=== PATIENT | male | born 1950 | race Caucasian/White ===

== ENCOUNTER 2020-01-05 12:20 | Inpatient (IN) ==
[2020-01-05 14:38] LABS: Basophils # 0.1 10*3/uL (0.0-0.2); Basophils % 0.5 % (0.0-0.8); Hematocrit 43.6 VOL% (42.0-52.0); Immature Granulocytes % 1.3 %; Immature Granulocytes Absolute 0.17 #; Lymphocytes % 7.5 % (21.2-54.2); Mean Corpuscular HGB Conc 34.4 GM/DL (32-36); Mean Corpuscular Volume 97.5 FL (87-102); Mean Platelet Volume 10.4 FL (9.6-12.0); Monocytes % 9.3 % (1.7-12.7); NRBC # 0.16 10*3/uL; Neutrophils % 81.4 % (38.7-73.9); Platelet Count 175 T/CUMM (130-400); Red Blood Count 4.47 MC/CUMM (3.8-5.5); Red Cell Distribution Width 15.8 % (9.3-17.3)
[2020-01-05 14:59] LABS: Acetaminophen < 2.0 UG/ML (10-30); Salicylate < 2.8 MG/DL (2.8-20)
[2020-01-05 15:07] LABS: Albumin 3.3 G/DL (3.4-5.0); Bilirubin,Total 1.6 MG/DL (0.2-1.0); Calcium 8.6 MG/DL (8.5-10.1); Osmolality,Calculated 266.5 MOS/KG (273-304); Thyroid Stimulating Hormone 1.41 uIU/ml (0.358-3.74); Total Protein 7.3 G/DL (6.4-8.3)
[2020-01-05] MEDS ORDERED: SODIUM CHLORIDE 0.9% 1,000 ML IV STA (15:22)
[2020-01-05] MEDS ORDERED: LEVOFLOXACIN INJ 500 MG in PREMIX 1 EACH IV STA (16:02)
[2020-01-05] MEDS ORDERED: GLUCAGON 1 MG VIAL IM PRN (16:57)
[2020-01-05] MEDS ORDERED: DEXTROSE 50% 25 GM/50 ML VIAL IV PRN (16:57)
[2020-01-05] MEDS ORDERED: ONDANSETRON 4 MG/2 ML VIAL IV PRN (16:57)
[2020-01-05] MEDS ORDERED: SODIUM CHLORIDE 0.9% 1,000 ML IV SCH (17:00)
[2020-01-05] MEDS ORDERED: NICOTINE 7 MG/24 HR PATCH TRANSDERM PRN (17:18)
[2020-01-05] MEDS ORDERED: MAGNESIUM SULF RIDER 4 GM in PREMIX 1 EACH IV PRN (17:23)
[2020-01-05] MEDS ORDERED: MAGNESIUM SULF RIDER 2 GM in PREMIX 1 EACH IV PRN (17:23)
[2020-01-05 17:27] LABS: Apearance,Urine CLEAR (Clear); Bilirubin,Urine Negative (Negative); Blood, Urine Large mg/dL (Negative); Glucose,Urine (UA) Negative (Negative); Ketones,Urine 80 mg/dL (Negative); Mucus,Urine Occasional /LPF (Occasional); Nitrite,Urine Negative (Negative); Protein,Urine 100 MG/DL; RBC,Urine 3 /HPF (0-4); Urine Color Yellow (Yellow); Urine Specific Gravity 1.046 (1.001-1.035); WBC,Urine 2 /HPF (0-6)
[2020-01-05 17:34] LABS: Barbiturates Screen,Urine Negative (Negative); Benzodiazepines Screen,Urine Negative (Negative); Cannabinoid Screen,Urine Negative (Negative); Opiate Screen,Urine Negative (Negative); Phencyclidine Screen,Urine Negative (Negative)
[2020-01-05] MEDS: chlordiazePOXIDE 25 MG CAPSULE PO SCH (18:45)
[2020-01-05] MEDS: DEXTROSE 5% NACL 0.9% 1,000 ML IV SCH (18:45)
[2020-01-05] MEDS ORDERED: LORazepam 2 MG/1 ML VIAL IV ONE (19:52)
[2020-01-05] MEDS: FOLIC ACID 1 MG TABLET PO SCH (20:26)
[2020-01-05] MEDS ORDERED: ENOXAPARIN 40 MG/0.4 ML SYRINGE SUBCUT SCH (21:00)
[2020-01-06] MEDS ORDERED: ENOXAPARIN 80 MG/0.8 ML SYRINGE SUBCUT ONE (00:29)
[2020-01-06] MEDS ORDERED: DILTIAZEM 25 MG/5 ML VIAL IV ONE (00:30)
[2020-01-06] MEDS: chlordiazePOXIDE 25 MG CAPSULE PO SCH ×5 (00:39→23:49)
[2020-01-06] MEDS ORDERED: ENOXAPARIN 80 MG/0.8 ML SYRINGE SUBCUT SCH (01:00)
[2020-01-06] MEDS ORDERED: DILTIAZEM 50 MG/10 ML VIAL IV ONE (01:00)
[2020-01-06] MEDS: dilTIAZem Drip 125 MG/125 ML PREMIX IV SCH (04:45)
[2020-01-06] MEDS: DEXTROSE 5% NACL 0.9% 1,000 ML IV SCH ×2 (04:45→14:15)
[2020-01-06] MEDS: LEVOFLOXACIN 500 MG TABLET PO SCH (09:10)
[2020-01-06] MEDS: MULTIVITAMIN (BEROCCA) TABLET PO SCH (09:10)
[2020-01-06] MEDS: THIAMINE 100 MG TABLET PO SCH (09:10)
[2020-01-06] MEDS: ACETAMINOPHEN 325 MG TABLET PO PRN ×2 (10:58→15:02)
[2020-01-06] MEDS ORDERED: carvediloL 6.25 MG TABLET PO SCH (11:45)
[2020-01-06] MEDS ORDERED: carvediloL 12.5 MG TABLET PO ONE (14:00)
[2020-01-06] MEDS: busPIRone 15 MG TABLET PO SCH ×2 (15:02→21:17)
[2020-01-06 17:23] LABS: Basophils # 0.1 10*3/uL (0.0-0.2); Basophils % 0.4 % (0.0-0.8); Eosinophils % 0.3 % (0.00-10.9); Hematocrit 29.2 VOL% (42.0-52.0); Immature Granulocytes % 0.8 %; Immature Granulocytes Absolute 0.11 #; Lymphocytes # 1.6 10*3/uL (1.4-4.0); Mean Corpuscular HGB Conc 34.9 GM/DL (32-36); Mean Corpuscular Volume 96.1 FL (87-102); Mean Platelet Volume 10.5 FL (9.6-12.0); Monocytes % 4.4 % (1.7-12.7); Neutrophils % 83.1 % (38.7-73.9); Red Cell Distribution Width 15.4 % (9.3-17.3); White Blood Count 14.6 T/CUMM (4-12)
[2020-01-06 17:35] LABS: Albumin 2.2 G/DL (3.4-5.0); Bilirubin,Total 1.5 MG/DL (0.2-1.0); Calcium 8.1 MG/DL (8.5-10.1); Osmolality,Calculated 263.7 MOS/KG (273-304)
[2020-01-06 17:46] LABS: Band Neutrophils 4 % (0-10); Lymphocytes 12 % (20-55); Platelet Estimate Adequate; Segmented Neutrophils 82 % (50-85); Total Cells Counted 100
[2020-01-06 18:06] LABS: Hemoglobin 10.2 GM/DL (14.0-18.0); Red Blood Count 3.04 MC/CUMM (3.8-5.5)
[2020-01-06 18:07] LABS: Platelet Count 117 T/CUMM (130-400)
[2020-01-06 18:13] LABS: Basophils # 0.1 10*3/uL (0.0-0.2); Basophils % 0.6 % (0.0-0.8); Eosinophils # 0.1 10*3/uL (0.0-0.87); Eosinophils % 0.3 % (0.00-10.9); Hematocrit 29.1 VOL% (42.0-52.0); Hemoglobin 10.2 GM/DL (14.0-18.0); Immature Granulocytes % 0.9 %; Immature Granulocytes Absolute 0.14 #; Lymphocytes # 1.8 10*3/uL (1.4-4.0); Lymphocytes % 11.7 % (21.2-54.2); Mean Corpuscular HGB Conc 35.1 GM/DL (32-36); Mean Corpuscular Volume 96.7 FL (87-102); Mean Platelet Volume 10.8 FL (9.6-12.0); Monocytes % 4.3 % (1.7-12.7); NRBC # 0.07 10*3/uL; Neutrophils % 82.2 % (38.7-73.9); Platelet Count 109 T/CUMM (130-400); Red Blood Count 3.01 MC/CUMM (3.8-5.5); Red Cell Distribution Width 15.3 % (9.3-17.3)
[2020-01-06 18:42] LABS: Band Neutrophils 2 % (0-10); Lymphocytes 4 % (20-55); Nucleated Red Blood Cells 1 (0-5); Platelet Estimate Adequate; Segmented Neutrophils 92 % (50-85); Total Cells Counted 100
[2020-01-06] MEDS: carvediloL 12.5 MG TABLET PO SCH (21:17)
[2020-01-06] MEDS: FOLIC ACID 1 MG TABLET PO SCH (21:17)
[2020-01-06 21:58] LABS: Hematocrit 29.5 VOL% (42.0-52.0); Hemoglobin 10.2 GM/DL (14.0-18.0)
[2020-01-07 01:05] LABS: Apearance,Urine CLEAR (Clear); Bilirubin,Urine Negative (Negative); Blood, Urine Small mg/dL (Negative); Glucose,Urine (UA) >=500 mg/dL (Negative); Ketones,Urine Negative (Negative); Mucus,Urine Occasional /LPF (Occasional); Nitrite,Urine Negative (Negative); Protein,Urine Negative; RBC,Urine 7 /HPF (0-4); Renal Epithelial Cells,Urine Occasional /HPF (<1); Squamous Epithelial Cell,Urine Occasional /HPF (0-10); Urine Color Straw (Yellow); Urine Urobilinogen < 2.0 EU/DL (0.2-1.0); WBC,Urine 29 /HPF (0-6)
[2020-01-07 06:33] LABS: Basophils # 0.1 10*3/uL (0.0-0.2); Basophils % 0.7 % (0.0-0.8); Eosinophils # 0.1 10*3/uL (0.0-0.87); Eosinophils % 0.5 % (0.00-10.9); Hematocrit 33.2 VOL% (42.0-52.0); Hemoglobin 11.3 GM/DL (14.0-18.0); Immature Granulocytes % 0.9 %; Lymphocytes # 1.1 10*3/uL (1.4-4.0); Lymphocytes % 10.2 % (21.2-54.2); Mean Corpuscular Volume 98.5 FL (87-102); Mean Platelet Volume 11.4 FL (9.6-12.0); Monocytes % 3.5 % (1.7-12.7); NRBC # 0.08 10*3/uL; Neutrophils % 84.2 % (38.7-73.9); Platelet Count 122 T/CUMM (130-400); Red Blood Count 3.37 MC/CUMM (3.8-5.5); Red Cell Distribution Width 15.3 % (9.3-17.3); White Blood Count 10.7 T/CUMM (4-12)
[2020-01-07] MEDS: chlordiazePOXIDE 25 MG CAPSULE PO SCH ×4 (06:38→23:11)
[2020-01-07 07:15] LABS: Calcium 8.2 MG/DL (8.5-10.1); Osmolality,Calculated 266.2 MOS/KG (273-304)
[2020-01-07 07:46] LABS: Band Neutrophils 8 % (0-10); Lymphocytes 13 % (20-55); Nucleated Red Blood Cells 4 (0-5); Segmented Neutrophils 75 % (50-85); Total Cells Counted 100
[2020-01-07 07:47] LABS: Hypochromasia 2+; Platelet Estimate Decreased
[2020-01-07] MEDS ORDERED: POTASSIUM CHLORIDE 20 MEQ TABLET PO ONE ×3 (08:39→20:00)
[2020-01-07] MEDS: MULTIVITAMIN (BEROCCA) TABLET PO SCH (09:22)
[2020-01-07] MEDS: carvediloL 12.5 MG TABLET PO SCH (09:22)
[2020-01-07] MEDS: busPIRone 15 MG TABLET PO SCH ×3 (09:22→20:52)
[2020-01-07] MEDS: THIAMINE 100 MG TABLET PO SCH (09:23)
[2020-01-07] MEDS: DEXTROSE 5% NACL 0.9% 1,000 ML IV SCH (09:23)
[2020-01-07] MEDS: LEVOFLOXACIN 500 MG TABLET PO SCH (09:23)
[2020-01-07] MEDS: APIXABAN 5 MG TABLET PO SCH ×2 (10:14→20:52)
[2020-01-07] MEDS: dilTIAZem Drip 125 MG/125 ML PREMIX IV SCH (13:07)
[2020-01-07] MEDS: LORazepam 2 MG/1 ML VIAL IV PRN ×2 (13:37→20:08)
[2020-01-07] MEDS: DIGOXIN 0.25 MG TABLET PO SCH (19:02)
[2020-01-07] MEDS: carvediloL 25 MG TABLET PO SCH (20:52)
[2020-01-07] MEDS: FOLIC ACID 1 MG TABLET PO SCH (20:52)
[2020-01-07] MEDS: MAGNESIUM OXIDE 400 MG TABLET PO SCH (20:54)
[2020-01-08] MEDS: DEXTROSE 5% NACL 0.9% 1,000 ML IV SCH ×2 (01:24→14:27)
[2020-01-08] MEDS: dilTIAZem Drip 125 MG/125 ML PREMIX IV SCH (02:28)
[2020-01-08] MEDS: chlordiazePOXIDE 25 MG CAPSULE PO SCH ×3 (05:03→18:05)
[2020-01-08] MEDS: LEVOFLOXACIN 500 MG TABLET PO SCH (09:34)
[2020-01-08] MEDS: carvediloL 25 MG TABLET PO SCH ×2 (09:34→21:43)
[2020-01-08] MEDS: busPIRone 15 MG TABLET PO SCH ×3 (09:34→21:42)
[2020-01-08] MEDS: MAGNESIUM OXIDE 400 MG TABLET PO SCH ×2 (09:34→21:43)
[2020-01-08] MEDS: MULTIVITAMIN (BEROCCA) TABLET PO SCH (09:34)
[2020-01-08] MEDS: APIXABAN 5 MG TABLET PO SCH ×2 (09:34→21:43)
[2020-01-08] MEDS: THIAMINE 100 MG TABLET PO SCH (10:07)
[2020-01-08] MEDS ORDERED: POTASSIUM CHLORIDE 20 MEQ TABLET PO ONE (14:02)
[2020-01-08] MEDS ORDERED: FUROSEMIDE 20 MG/2 ML VIAL IV ONE (14:02)
[2020-01-08] MEDS: POTASSIUM CHLORIDE 20 MEQ TABLET PO SCH (21:43)
[2020-01-08] MEDS: FOLIC ACID 1 MG TABLET PO SCH (21:43)
[2020-01-08] MEDS: DIGOXIN 0.25 MG TABLET PO SCH (21:45)
[2020-01-09] MEDS: chlordiazePOXIDE 25 MG CAPSULE PO SCH ×4 (00:09→17:56)
[2020-01-09] MEDS: dilTIAZem Drip 125 MG/125 ML PREMIX IV SCH (05:08)
[2020-01-09 05:20] LABS: Basophils # 0.1 10*3/uL (0.0-0.2); Basophils % 1.1 % (0.0-0.8); Eosinophils # 0.1 10*3/uL (0.0-0.87); Eosinophils % 0.8 % (0.00-10.9); Hematocrit 34.4 VOL% (42.0-52.0); Hemoglobin 11.9 GM/DL (14.0-18.0); Immature Granulocytes % 1.7 %; Immature Granulocytes Absolute 0.11 #; Lymphocytes # 1.2 10*3/uL (1.4-4.0); Lymphocytes % 18.8 % (21.2-54.2); Mean Corpuscular HGB Conc 34.6 GM/DL (32-36); Mean Corpuscular Volume 97.2 FL (87-102); Mean Platelet Volume 10.5 FL (9.6-12.0); Monocytes % 13.2 % (1.7-12.7); NRBC # 0.03 10*3/uL; Neutrophils % 64.4 % (38.7-73.9); Platelet Count 143 T/CUMM (130-400); Red Blood Count 3.54 MC/CUMM (3.8-5.5); Red Cell Distribution Width 15.2 % (9.3-17.3); White Blood Count 6.6 T/CUMM (4-12)
[2020-01-09 05:31] LABS: Calcium 8.5 MG/DL (8.5-10.1)
[2020-01-09] MEDS ORDERED: FUROSEMIDE 20 MG TABLET PO SCH (09:00)
[2020-01-09] MEDS ORDERED: LEVOFLOXACIN INJ 500 MG in PREMIX 1 EACH IV SCH (09:00)
[2020-01-09] MEDS: MAGNESIUM OXIDE 400 MG TABLET PO SCH ×2 (09:23→20:08)
[2020-01-09] MEDS: POTASSIUM CHLORIDE 20 MEQ TABLET PO SCH ×2 (09:23→20:08)
[2020-01-09] MEDS: busPIRone 15 MG TABLET PO SCH ×3 (09:23→20:08)
[2020-01-09] MEDS: MULTIVITAMIN (BEROCCA) TABLET PO SCH (09:23)
[2020-01-09] MEDS: THIAMINE 100 MG TABLET PO SCH (09:23)
[2020-01-09] MEDS: APIXABAN 5 MG TABLET PO SCH ×2 (09:24→20:13)
[2020-01-09] MEDS: carvediloL 25 MG TABLET PO SCH ×2 (09:24→20:08)
[2020-01-09] MEDS ORDERED: POLYETHYLENE GLYCOL POWDER 17 GM PACK PO PRN (10:19)
[2020-01-09] MEDS ORDERED: LEVOFLOXACIN 500 MG TABLET PO SCH (10:30)
[2020-01-09] MEDS: FOLIC ACID 1 MG TABLET PO SCH (20:08)
[2020-01-09] MEDS: DIGOXIN 0.25 MG TABLET PO SCH (20:12)
[2020-01-09 21:30] VITALS: BP 106/76
== END 2020-01-09 21:15 | DRG 194 ==
LOC: N.EDINP 12:20 → N.ED 12:20 → SUATTDRO 16:57 → N.TELES 18:12 → SUATTDRO 01-08 12:42
PROVIDERS: ADMIT Internal Medicine Geriatric Medicine; ATTEND Internal Medicine

== ENCOUNTER 2022-03-18 12:33 | Inpatient (IN) ==
[2022-03-18 13:06] LABS: Basophils % 0.4 % (0.0-0.8); Eosinophils % 0.2 % (0.00-10.9); Immature Granulocytes % 1.7 %; Immature Granulocytes Absolute 0.17 #; Lymphocytes # 1.3 10*3/uL (1.4-4.0); Lymphocytes % 13.3 % (21.2-54.2); Mean Corpuscular HGB Conc 31.5 GM/DL (32-36); Mean Corpuscular Volume 112.5 FL (87-102); Mean Platelet Volume 9.3 FL (9.6-12.0); Monocytes # 1.3 10*3/uL (0.11-0.8); Monocytes % 12.8 % (1.7-12.7); NRBC # 1.04 10*3/uL; Neutrophils % 71.6 % (38.7-73.9); Platelet Count 275 T/CUMM (130-400); Red Blood Count 1.92 MC/CUMM (3.8-5.5); Red Cell Distribution Width 18.6 % (9.3-17.3); White Blood Count 9.9 T/CUMM (4-12)
[2022-03-18 13:11] LABS: Hematocrit 21.6 VOL% (42.0-52.0); Hemoglobin 6.8 GM/DL (14.0-18.0)
[2022-03-18 13:30] LABS: Anisocytosis 2+; Eosinophils 1 % (0-10); Lymphocytes 7 % (20-55); Macrocytosis 1+; Metamyelocytes 3 %; Myelocytes 1 %; Platelet Estimate Normal; Polychromasia Slight; Total Cells Counted 100
[2022-03-18 13:31] LABS: Nucleated Red Blood Cells 16 /100 WBC (0-5)
[2022-03-18 13:33] LABS: Albumin 3.7 G/DL (3.4-5.0); Bilirubin,Total 1.5 MG/DL (0.20-1.00); Calcium 8.6 MG/DL (8.5-10.1); Osmolality,Calculated 271.1 MOS/KG (273-304); Potassium 3.5 MMOL/L (3.5-5.1); Total Protein 6.4 G/DL (6.4-8.2)
[2022-03-18 14:35] LABS: Bilirubin,Urine Small mg/dL (Negative); Blood, Urine Trace mg/dL (Negative); Glucose,Urine (UA) 100 mg/dL (Negative); Ketones,Urine 15 mg/dL (Negative); Nitrite,Urine Negative (Negative); Protein,Urine 30 mg/dL (Negative); Urine Appearance Clear (Clear); Urine Color Yellow (Yellow); Urine Specific Gravity 1.015 (1.001-1.035)
[2022-03-18 14:41] LABS: Hyaline Casts,Urine 10 /LPF (0-3); Mucus,Urine Occasional /LPF (Occasional); RBC,Urine 1 /HPF (0-4)
[2022-03-18 14:54] LABS: Barbiturates Screen,Urine Negative (Negative); Benzodiazepines Screen,Urine Negative (Negative); Cannabinoid Screen,Urine Negative (Negative); Opiate Screen,Urine Positive (Negative); Phencyclidine Screen,Urine Negative (Negative)
[2022-03-18] MEDS ORDERED: SODIUM CHLORIDE 0.9% 1,000 ML IV PRN (15:03)
[2022-03-18] MEDS ORDERED: NICOTINE 21 MG/24 HR PATCH TRANSDERM PRN (15:05)
[2022-03-18] MEDS ORDERED: ONDANSETRON 4 MG/2 ML VIAL IV PRN (15:05)
[2022-03-18 15:12] LABS: INR 1.3; PT Patient Result 14.6 SECS (10.1-12.1); Partial Thromboplastin Time 30.6 SECS (23.7-32.9)
[2022-03-18] MEDS ORDERED: MAGNESIUM HYDROXIDE SUSP 30 ML UDCUP PO PRN (15:52)
[2022-03-18] MEDS: PANTOPRAZOLE 40 MG TABLET PO SCH (17:58)
[2022-03-18] MEDS: NICOTINE 21 MG/24 HR PATCH TRANSDERM SCH (18:02)
[2022-03-18] MEDS ORDERED: DOCUSATE SODIUM 100 MG CAPSULE PO SCH (21:00)
[2022-03-18] MEDS: busPIRone 15 MG TABLET PO SCH (21:55)
[2022-03-18] MEDS: DOCUSATE SODIUM 100 MG CAPSULE PO SCH (21:56)
[2022-03-18] MEDS: chlordiazePOXIDE 10 MG CAPSULE PO SCH (21:56)
[2022-03-18] MEDS: THIAMINE 100 MG TABLET PO SCH (21:56)
[2022-03-18] MEDS ORDERED: MELATONIN 3 MG TABLET PO PRN (23:42)
[2022-03-18] MEDS ORDERED: METOPROLOL TARTRATE 5 MG/5 ML VIAL IV ONE (23:43)
[2022-03-19 05:13] LABS: Basophils % 0.6 % (0.0-0.8); Eosinophils # 0.1 10*3/uL (0.0-0.87); Eosinophils % 0.7 % (0.00-10.9); Hematocrit 24.8 VOL% (42.0-52.0); Immature Granulocytes Absolute 0.07 #; Lymphocytes # 1.6 10*3/uL (1.4-4.0); Lymphocytes % 22.2 % (21.2-54.2); Mean Corpuscular HGB Conc 32.3 GM/DL (32-36); Mean Corpuscular Volume 103.8 FL (87-102); Mean Platelet Volume 9.5 FL (9.6-12.0); Monocytes # 1.1 10*3/uL (0.11-0.8); Monocytes % 16.1 % (1.7-12.7); NRBC # 0.47 10*3/uL; Neutrophils % 59.4 % (38.7-73.9); Platelet Count 231 T/CUMM (130-400); Red Blood Count 2.39 MC/CUMM (3.8-5.5); Red Cell Distribution Width 19.9 % (9.3-17.3)
[2022-03-19 05:36] LABS: Folate 8.47 NG/ML (5.38-24.0); Vitamin B12 576 PG/ML (211-911)
[2022-03-19 05:38] LABS: Eosinophils 1 % (0-10); Hypochromia 1+; Lymphocytes 24 % (20-55); Nucleated Red Blood Cells 7 /100 WBC (0-5); Polychromasia Slight; Target Cells Slight; Total Cells Counted 100
[2022-03-19 05:39] LABS: Macrocytosis 1+
[2022-03-19 05:42] LABS: Calcium 8.1 MG/DL (8.5-10.1); Osmolality,Calculated 277.5 MOS/KG (273-304); Potassium 3.7 MMOL/L (3.5-5.1); Thyroid Stimulating Hormone 1.5 uIU/ml (0.358-3.74)
[2022-03-19 05:49] LABS: % Iron Saturation 10.6 % (18-50); Ferritin 88.6 ng/mL (26-388); Haptoglobin < 8.0 MG/DL (30-200); Iron 34 UG/DL (65-175); Iron Binding Capacity 320 UG/DL (250-450)
[2022-03-19 06:21] LABS: Sedimentation Rate-Westergren 10 MM/HR (0-20)
[2022-03-19 09:29] LABS: Hemoglobin A1 (Alkaline) 97.1 % (96.5-98.5); Hemoglobin A2 (Alkaline) 2.9 % (1.5-3.5)
[2022-03-19] MEDS: THIAMINE 100 MG TABLET PO SCH ×2 (09:55→21:35)
[2022-03-19] MEDS: MAGNESIUM CHLORIDE 64 MG TABLET PO SCH (09:56)
[2022-03-19] MEDS: DOCUSATE SODIUM 100 MG CAPSULE PO SCH ×2 (09:56→21:35)
[2022-03-19] MEDS: chlordiazePOXIDE 10 MG CAPSULE PO SCH ×3 (09:57→21:35)
[2022-03-19] MEDS: busPIRone 15 MG TABLET PO SCH ×3 (09:57→21:35)
[2022-03-19] MEDS: MULTIVITAMIN (CENTRUM) TABLET PO SCH (09:57)
[2022-03-19] MEDS: PANTOPRAZOLE 40 MG TABLET PO SCH ×2 (09:58→21:35)
[2022-03-19] MEDS: POLYETHYLENE GLYCOL POWDER 17 GM PACK PO SCH (09:59)
[2022-03-19] MEDS: NICOTINE 21 MG/24 HR PATCH TRANSDERM SCH (09:59)
[2022-03-19] MEDS: METOPROLOL TARTRATE 25 MG TABLET PO SCH ×2 (09:59→23:08)
[2022-03-19] MEDS: FERRIC GLUCONATE COMPLEX 125 MG in SODIUM CHLORIDE 0.9% 100 ML IV SCH (15:17)
[2022-03-20 06:01] LABS: Basophils % 0.6 % (0.0-0.8); Eosinophils # 0.1 10*3/uL (0.0-0.87); Eosinophils % 1.8 % (0.00-10.9); Hematocrit 27.8 VOL% (42.0-52.0); Hemoglobin 8.8 GM/DL (14.0-18.0); Immature Granulocytes % 1.2 %; Immature Granulocytes Absolute 0.08 #; Lymphocytes # 1.3 10*3/uL (1.4-4.0); Lymphocytes % 19.1 % (21.2-54.2); Mean Corpuscular HGB Conc 31.7 GM/DL (32-36); Mean Corpuscular Volume 104.9 FL (87-102); Mean Platelet Volume 9.4 FL (9.6-12.0); Monocytes # 1.2 10*3/uL (0.11-0.8); Monocytes % 17.8 % (1.7-12.7); NRBC # 0.13 10*3/uL; Neutrophils % 59.5 % (38.7-73.9); Platelet Count 255 T/CUMM (130-400); Red Blood Count 2.65 MC/CUMM (3.8-5.5); Red Cell Distribution Width 20.2 % (9.3-17.3); White Blood Count 6.8 T/CUMM (4-12)
[2022-03-20 06:05] LABS: INR 1.1; PT Patient Result 11.6 SECS (10.1-12.1)
[2022-03-20 06:09] LABS: Calcium 8.2 MG/DL (8.5-10.1); Osmolality,Calculated 280.3 MOS/KG (273-304)
[2022-03-20 06:25] LABS: Eosinophils 4 % (0-10); Lymphocytes 19 % (20-55); Total Cells Counted 100
[2022-03-20 06:26] LABS: Hypochromia 1+; Macrocytosis 1+
[2022-03-20 06:27] LABS: Target Cells Slight
[2022-03-20 06:30] LABS: Platelet Estimate Normal; Polychromasia Few
[2022-03-20] MEDS: LACTATED RINGERS 1,000 ML IV SCH (08:05)
[2022-03-20] MEDS ORDERED: propofoL 200 MG/20 ML VIAL IV ONE (08:48)
[2022-03-20] MEDS ORDERED: LIDOCAINE 2% 5 ML VIAL ONE (08:48)
[2022-03-20] MEDS ORDERED: PHENYLEPHRINE 1 MG/10 ML SYRINGE IV ONE (09:05)
[2022-03-20] MEDS ORDERED: MAGNESIUM HYDROXIDE SUSP 30 ML UDCUP PO ONE ×2 (09:30→21:00)
[2022-03-20] MEDS: busPIRone 15 MG TABLET PO SCH ×3 (10:42→20:37)
[2022-03-20] MEDS: POLYETHYLENE GLYCOL POWDER 17 GM PACK PO SCH (10:42)
[2022-03-20] MEDS: BISACODYL 5 MG TABLET PO SCH ×3 (10:42→23:40)
[2022-03-20] MEDS: THIAMINE 100 MG TABLET PO SCH ×2 (10:42→20:37)
[2022-03-20] MEDS: PANTOPRAZOLE 40 MG TABLET PO SCH ×2 (10:42→20:37)
[2022-03-20] MEDS: chlordiazePOXIDE 10 MG CAPSULE PO SCH ×3 (10:43→20:37)
[2022-03-20] MEDS: MULTIVITAMIN (CENTRUM) TABLET PO SCH (10:43)
[2022-03-20] MEDS: MAGNESIUM CHLORIDE 64 MG TABLET PO SCH (10:43)
[2022-03-20] MEDS: METOPROLOL TARTRATE 25 MG TABLET PO SCH ×2 (10:43→20:37)
[2022-03-20] MEDS: FERRIC GLUCONATE COMPLEX 125 MG in SODIUM CHLORIDE 0.9% 100 ML IV SCH (10:43)
[2022-03-20] MEDS: NICOTINE 21 MG/24 HR PATCH TRANSDERM SCH (10:44)
[2022-03-20] MEDS: DOCUSATE SODIUM 100 MG CAPSULE PO SCH ×2 (10:50→20:37)
[2022-03-20] MEDS ORDERED: POLYETHYLENE GLYCOL POWDER 255 GM BOTTLE PO ONE (18:00)
[2022-03-21] MEDS: BISACODYL 5 MG TABLET PO SCH (00:57)
[2022-03-21 05:11] LABS: Basophils # 0.1 10*3/uL (0.0-0.2); Basophils % 0.8 % (0.0-0.8); Eosinophils # 0.1 10*3/uL (0.0-0.87); Eosinophils % 2.1 % (0.00-10.9); Hematocrit 28.8 VOL% (42.0-52.0); Hemoglobin 9.2 GM/DL (14.0-18.0); Immature Granulocytes % 0.9 %; Immature Granulocytes Absolute 0.06 #; Lymphocytes # 1.5 10*3/uL (1.4-4.0); Lymphocytes % 23.2 % (21.2-54.2); Mean Corpuscular HGB Conc 31.9 GM/DL (32-36); Mean Corpuscular Volume 105.1 FL (87-102); Monocytes # 1.4 10*3/uL (0.11-0.8); Monocytes % 20.9 % (1.7-12.7); NRBC # 0.08 10*3/uL; Neutrophils % 52.1 % (38.7-73.9); Platelet Count 267 T/CUMM (130-400); Red Blood Count 2.74 MC/CUMM (3.8-5.5); Red Cell Distribution Width 20.1 % (9.3-17.3); White Blood Count 6.6 T/CUMM (4-12)
[2022-03-21 05:30] LABS: Calcium 8.3 MG/DL (8.5-10.1); Osmolality,Calculated 274.5 MOS/KG (273-304)
[2022-03-21 05:45] LABS: Eosinophils 4 % (0-10); Lymphocytes 25 % (20-55); Nucleated Red Blood Cells 1 /100 WBC (0-5); Platelet Estimate Normal; Total Cells Counted 100
[2022-03-21] MEDS: LACTATED RINGERS 1,000 ML IV SCH (10:05)
[2022-03-21] MEDS: DOCUSATE SODIUM 100 MG CAPSULE PO SCH (10:51)
[2022-03-21] MEDS: busPIRone 15 MG TABLET PO SCH (10:51)
[2022-03-21] MEDS: THIAMINE 100 MG TABLET PO SCH (10:52)
[2022-03-21] MEDS: chlordiazePOXIDE 10 MG CAPSULE PO SCH (10:52)
[2022-03-21 12:23] VITALS: BP 105/68
[2022-03-21] MEDS: POLYETHYLENE GLYCOL POWDER 17 GM PACK PO SCH (14:01)
[2022-03-21] MEDS: METOPROLOL TARTRATE 25 MG TABLET PO SCH (14:01)
[2022-03-21] MEDS: MULTIVITAMIN (CENTRUM) TABLET PO SCH (14:01)
[2022-03-21] MEDS: FERRIC GLUCONATE COMPLEX 125 MG in SODIUM CHLORIDE 0.9% 100 ML IV SCH (14:01)
[2022-03-21] MEDS: PANTOPRAZOLE 40 MG TABLET PO SCH (14:02)
[2022-03-21] MEDS: NICOTINE 21 MG/24 HR PATCH TRANSDERM SCH (14:02)
[2022-03-21] MEDS: MAGNESIUM CHLORIDE 64 MG TABLET PO SCH (14:02)
[2022-03-22] MEDS ORDERED: FERROUS SULFATE 325 MG TABLET PO SCH (09:00)
== END 2022-03-21 14:00 | disposition home or self-care (01) | DRG 378 ==
LOC: N.EDINP 12:33 → N.ED 12:33 → N.5E 17:30
PROVIDERS: ADMIT Hospitalist; ATTEND Hospitalist